=== PATIENT | male | born 1940 | race Caucasian/White ===

== ENCOUNTER 2017-11-03 20:54 | Emergency (ER) | payer OTHER, MEDICARE ==
[2017-11-03 21:06] VITALS: BP 120/76; PULSE 93; TEMP 99.4; BMI 26.9
[2017-11-03 21:16] LABS: PH,URINE 5.5 (4.5-8); URINE APPEARANCE Clear; URINE BILIRUBIN Negative (NEGATIVE); URINE COLOR YELLOW; URINE GLUCOSE (UA) Negative (NEGATIVE); URINE KETONE Negative (NEGATIVE); URINE LEUK ESTERASE 1+ (NEGATIVE); URINE NITRITE Positive (NEGATIVE); URINE PROTEIN 1+ (NEGATIVE); URINE UROBILINOGEN 0.2 (0.2-1.0)
--- NOTE | 2017-11-03 21:31 | PDOC ---
History of Present Illness - General Chief Complaint: Urinary Problem Stated Complaint: UTI Time Seen by Provider: 11/03/17 21:15 - History of Present Illness Initial Comments: This 77-year-old man with history of HTN, HLD, GERD, BPH referred to ER by PMD because of elevated white blood cell count. Patient was seen by his doctor ( Angel) earlier today with symptoms of urinary tract infection. Patient describes increasing dysuria/urinary frequency/fever over the last few days. UTI was diagnosed by his doctor and ciprofloxacin 500 mg twice a day was prescribed. Laboratory evaluation was performed at doctor's office but results were not received until this evening. White blood cell count was noted to be 26 ,200; patient and his were contacted and referred to ER for evaluation. During the day , after patient was evaluated by his PMD, he returned home without filling prescription for ciprofloxacin. Subsequently, he was nauseated and lethargic. When his returned home from work, she filled prescription and first dose of Cipro was given in the early evening. Within an hour, patient reports that he felt significantly better with resolution of the dysuria and lethargy/nausea. He states that he feels better now than he has felt for several days. Past History - Past Medical History Allergies/Adverse Reactions: Allergies Allergy/AdvReac Type Severity Reaction Status Date / Time No Known Allergies Allergy Verified 03/29/12 02:36 Home Medications: Ambulatory Orders Amlodipine Besylate 5 mg PO DAILY 11/03/17 Atorvastatin Ca [Lipitor] 20 mg PO HS 11/03/17 Cholecalciferol (Vitamin D3) [Vitamin D3] 1,000 unit PO DAILY 11/03/17 Omeprazole Magnesium [Prilosec Otc] 20 mg PO DAILY 11/03/17 Cardiac Disorders: Yes (VENTRICULAR HYPERTROPHY) COPD: No GI Disorders: Yes (GERD, IBS DIVERTICULOSIS) Disorders: Yes (BPH, RETENTION, ED) HTN: Yes Hypercholesterolemia: Yes Other medical history: UMBILICAL HERNIA - Suicide/Smoking/Psychosocial Hx Smoking Status: No Smoking History: Never smoked Have you smoked in the past 12 months: No Number of Cigarettes Smoked Daily: 0 Cigars Per Day: 0 Hx Alcohol Use: No Drug/Substance Use Hx: No Substance Use Type: None Hx Substance Use Treatment: No Review of Systems - Review of Systems Able to Perform ROS?: Yes Comments:: 12 point review of systems is negative except for what is noted in the history of present illness *Physical Exam - Vital Signs Last Vital Signs Temp Pulse Resp BP Pulse Ox 99.4 F 93 H 18 120/76 98 11/03/17 21:00 11/03/17 21:00 11/03/17 21:00 11/03/17 21:00 11/03/17 21:00 - Physical Exam Comments: GENERAL: Adult male, alert and oriented 3, in no acute distress HEAD: Normal with no signs of trauma. EYES: PERRLA, EOMI, sclera anicteric, conjunctiva clear. ENT: Ears normal, nares patent, oropharynx clear without exudates. Dry mucous membranes. NECK: Normal range of motion, supple without lymphadenopathy, JVD, or masses. LUNGS: Breath sounds equal, clear to auscultation bilaterally. No wheezes, and no crackles. HEART:Regular rate and rhythm, normal S1 and S2 without murmur, rub or gallop. ABDOMEN:.normal bowel sounds No guarding,tenderness or rebound.No masses No distention. EXTREMITIES: Normal range of motion, no edema. No clubbing or cyanosis. No erythema, or tenderness. NEUROLOGICAL: Cranial nerves II through XII grossly intact. Normal speech. No focal neurological deficits. MUSCULOSKELETAL: Back non-tender to palpation, no CVA tenderness SKIN: Warm, Dry, normal turgor, no rashes or lesions noted. ED Treatment Course - LABORATORY CBC & Chemistry Diagram: 11/03/17 21:45 11/03/17 21:46 - ADDITIONAL ORDERS Additional order review: Laboratory Results 11/03/17 21:07 Urine Color Yellow Urine Appearance Clear Urine pH 5.5 Ur Specific [place] 1.015 Urine Protein 1+ H Urine Glucose (UA) Negative Urine Ketones Negative Urine Blood Trace-intact H Urine Nitrite Positive Urine Bilirubin Negative Urine Urobilinogen 0.2 Ur Leukocyte Esterase 1+ H Progress Note - Progress Note Progress Note: This 77-year-old man with a history of BPH and symptoms of UTI for a few days, with diagnosis of UTI established by his PMD earlier today presents with history of markedly elevated white blood cell count measured in PMD office earlier in the day. Since then, he has had one dose of ciprofloxacin 500 mg and feels remarkably better. Exam reveals low-grade fever of 99.4 degrees Fahrenheit and mild tachycardia but normal blood pressure and pulse ox 98% on RA. On exam, his mucous membranes are dry but the remainder of his exam is essentially normal. Laboratory evaluation will be repleted including CBC/chemistry profile/ urinalysis/blood cultures as well as lactic acid level to evaluate for signs of sepsis (although clinically patient does not appear to be systemically ill). Meanwhile, patient will receive a liter of normal saline. Urinalysis is consistent with UTI with positive nitrite/positive LE/WBCs/RBCs and bacteria. Urine culture and sensitivity sent. Levaquin 500 mg IV administered. Remainder of laboratory evaluation shows persistent high WBC count (25,000) with neutrophil predominance. There is mild hypokalemia on chemistry profile ( likely secondary to diuretic); mild prerenal azotemia present with BUN is 17 and creatinine 1.1. Although patient and do not recall if he has been diagnosis prediabetic, random glucose is 205. Lactic acid is slightly elevated at 2.6. Patient received a liter of normal saline and continues to feel comfortable without recurrence of lethargy/nausea. He states that he is now hungry and feeling alert. Patient will be discharged with instructions to follow-up with his doctor within the next 1-2 days. He should continue ciprofloxacin as prescribed with next dose being tomorrow morning. His other medications should be also taken as prescribed. He should return to the emergency room if he has recurrence of high fever/dysuria/nausea or lethargy. Meanwhile, he should drink plenty of water *DC/Admit/Observation/Transfer Diagnosis at time of Disposition: UTI (urinary tract infection) Qualifiers: Urinary tract infection type: site unspecified Hematuria presence: without hematuria Qualified Code(s): N39.0 - Urinary tract infection, site not specified - Discharge Dispostion Disposition: HOME Condition at time of disposition: Stable - Referrals Referrals: Ramon Hammond [Primary Care Provider] - - Patient Instructions Printed Discharge Instructions: Urinary Tract Infection Additional Instructions: Drink plenty of fluids Continue ciprofloxacin as prescribed by your doctor (next dose in the morning) Continue all of your other medications as prescribed Follow-up with your doctor as previously scheduled Return to ER if you have vomiting/fever/worsening pain - Post Discharge Activity
[2017-11-03 21:42] LABS: URINE BACTERIA FEW /hpf (NEGATIVE); URINE WBC 30-40 (0-2)
[2017-11-03] MEDS ORDERED: SODIUM CHLORIDE 1,000 ML IV STA (21:48)
[2017-11-03 21:54] LABS: HEMOGLOBIN 14.7 GM/dl (11.7-16.9); MCH 30.7 pg (25.7-33.7); MCHC 34.9 g/dl (32.0-35.9); MEAN PLT VOLUME 8.6 fl (7.5-11.1); PLATELET COUNT 186 K/MM3 (134-434); RBC 4.78 M/mm3 (4.00-5.60); RDW 13.1 % (11.9-15.9)
[2017-11-03 22:12] LABS: ALBUMIN 3.5 g/dl (3.5-5.0); ALK PHOS 46 U/L (32-92); ANION GAP 7 (8-16); BILIRUBIN,TOTAL 1.4 mg/dl (0.2-1.0); BLOOD UREA NITROGEN 19 mg/dl (7-18); CALCIUM 8.5 mg/dl (8.4-10.2); CHLORIDE 101 mmol/L (98-107); CO2 23 mmol/L (22-28); CREATININE 1.1 mg/dl (0.6-1.3); GLUCOSE,RANDOM 205 mg/dl (74-106); POTASSIUM 3.3 mmol/L (3.5-5.1); SGOT/AST 20 U/L (10-42); SGPT/ALT 18 U/L (10-40); SODIUM 131 mmol/L (136-145); TOT PROT 6.1 g/dl (6.4-8.3)
[2017-11-03 22:28] LABS: PLATELET ESTIMATE ADEQUATE
--- NOTE | 2017-11-08 20:22 | PDOC ---
Patient Follow-up (Call Back) - Post ED Follow - Up Condition at time of discharge: Stable Disposition at time of original discharge: HOME Reason for Call Back: Abnwl. Microbiology Signs/Symptoms Improved: Yes (patient states that he is markedly improved) - Disposition Additional Instructions/Notes: Patient was contacted because urine culture resulted in Escherichia coli ESBL resistant to fluoroquinolones. Patient had been started on ciprofloxacin by his doctors prior to presentation here and continued on discharge. Patient states that he is feeling much better; his antibiotic has been changed to nitrofurantoin (one of the few antibiotics that organism is sensitive to). He states that he is scheduled to be followed up by infectious disease at [facility] tomorrow
== END 2017-11-03 23:49 | disposition home or self-care (01) ==
LOC: FER 20:54
PROC: 3E03329 Introduction of Other Anti-infective into Peripheral Vein, Percutaneous Approach (ICD-10-PCS; principal; 2017-11-03)
PROC: 3E0337Z Introduction of Electrolytic and Water Balance Substance into Peripheral Vein, Percutaneous Approach (ICD-10-PCS; 2017-11-03)
DX: N39.0 Urinary tract infection, site not specified (principal); I10 Essential (primary) hypertension; E78.5 Hyperlipidemia, unspecified; K21.9 Gastro-esophageal reflux disease without esophagitis; N40.0 Benign prostatic hyperplasia without lower urinary tract symptoms; R50.9 Fever, unspecified; R00.0 Tachycardia, unspecified
CPT/HCPCS: 36415; 80053; 81003; 81015; 83605; 85025; 87040; 87086; 87186; 99282-25; J7030

== ENCOUNTER 2018-12-06 17:14 | Emergency (ER) | payer OTHER, MEDICARE ==
--- NOTE | 2018-12-06 17:19 | PDOC ---
History of Present Illness - General Chief Complaint: Foreign Body (FB) Stated Complaint: FISHING HOOK IN FINGER Time Seen by Provider: 12/06/18 17:19 - History of Present Illness Initial Comments: 78 year old male with PMH of HTN, GERD, and hypercholesterolemia presenting with right middle digit pain after being impaled by a fish hook. Patient states this happened earlier this morning while fly fishing and a friend casted while he was close at which point the fly hook caught his finger. The hook is small and has a small melita at the end according to the patient. He denies any bleeding , drainage, fevers, nausea, vomiting, parethesias, or grater than mild pain. His last TDAP was >10 years prior. 12/06/18 17:56 Past History - Past Medical History Allergies/Adverse Reactions: Allergies Allergy/AdvReac Type Severity Reaction Status Date / Time No Known Allergies Allergy Verified 12/06/18 17:16 Home Medications: Ambulatory Orders Amlodipine Besylate 5 mg PO DAILY 11/03/17 Atorvastatin Ca [Lipitor] 20 mg PO HS 11/03/17 Cholecalciferol (Vitamin D3) [Vitamin D3] 1,000 unit PO DAILY 11/03/17 Omeprazole Magnesium [Prilosec Otc] 20 mg PO DAILY 11/03/17 Hydrochlorothiazide [Hctz -] 12.5 mg PO DAILY 12/06/18 Losartan Potassium 25 mg PO DAILY 12/06/18 Cardiac Disorders: Yes (VENTRICULAR HYPERTROPHY) COPD: No GI Disorders: Yes (GERD, IBS DIVERTICULOSIS) Disorders: Yes (BPH, RETENTION, ED) HTN: Yes Hypercholesterolemia: Yes - Suicide/Smoking/Psychosocial Hx Smoking Status: No Smoking History: Never smoked Have you smoked in the past 12 months: No Number of Cigarettes Smoked Daily: 0 Cigars Per Day: 0 Hx Alcohol Use: No Drug/Substance Use Hx: No Substance Use Type: None Hx Substance Use Treatment: No Review of Systems - Review of Systems Constitutional: No: Chills, Diaphoresis, Fever HEENTM: No: Blurred Vision, Tearing Respiratory: No: Cough, Orthopnea, Shortness of Breath Cardiac (ROS): No: Chest Pain, Edema ABD/GI: No: Diarrhea, Nausea, Vomiting : No: Dysuria, Discharge Integumentary: No: Erythema, Flushing Neurological: No: Numbness, Paresthesia, Tingling, Tremors Psychiatric: No: Anxiety, Depression Hematologic/Lymphatic: No: Anemia, Blood Clots *Physical Exam - Physical Exam General Appearance: Yes: Nourished, Appropriately Dressed. No: Apparent Distress HEENT: positive: EOMI, MARIZOL, Normal ENT Inspection, Normal Voice Neck: positive: Trachea midline, Normal Thyroid, Supple. negative: Tender, Rigid Respiratory/Chest: positive: Lungs Clear, Normal Breath Sounds. negative: Chest Tender, Respiratory Distress Cardiovascular: negative: Regular Rhythm, Regular Rate Gastrointestinal/Abdominal: positive: Normal Bowel Sounds, Flat, Soft. negative : Tender Lymphatic: negative: Adenopathy, Tenderness Musculoskeletal: positive: Normal Inspection. negative: Decreased Range of Motion Extremity: positive: Normal Capillary Refill, Tender (Mildly tender near the tsite of the injury.). negative: Normal Inspection (Right third digit with fish hook burried in distal, lateral, javier surface. No bleeding, erythema, drainage, or swelling.), Normal Range of Motion Integumentary: positive: Normal Color, Dry, Warm Neurologic: positive: Fully Oriented, Alert, Normal Mood/Affect, Normal Response , Motor Strength 5/5 Procedures - Laceration/Wound Repair Right Anterior Volar Hand 3rd digit Wound Length: to 2.5 cm Wound Explored: foreign body removed Wound's Depth, Shape: superficial Irrigated w/ Saline: Yes Betadine Prep: No Anesthesia: 1% Lidocaine Amount of Anesthetic (ccs): 4 (FInger block) Layer Closure: No Sterile Dressing Applied: Yes Progress: Fish hook removed from lateral, distal, javier surface of the third right digit. Anesthesia achieved with 4 ccs lidocaine in the javier flexor sheath achieving full finger anesthesia. Fish hook driven through the skin and the tip was cut off and removed. The fish hook was then backed out of the entry wound. Patient tolerated the procedure well. Minimal blood loss. Finger irrigated thoroughly afterwards. 12/06/18 18:13 Medical Decision Making - Medical Decision Making 78 year old male with PMH of HTN, HLD, and GERD presenting with fish hook in right third digit. Anesthetized and removed per procedure section. VSS and patient discharged after TDAP booster. Given discharge instructions and follow up precautions. 12/06/18 18:04 *DC/Admit/Observation/Transfer Diagnosis at time of Disposition: Foreign body of right hand Qualifiers: Encounter type: initial encounter Qualified Code(s): S60.551A - Superficial foreign body of right hand, initial encounter - Discharge Dispostion Disposition: HOME Condition at time of disposition: Improved Decision to Admit order: No - Referrals Referrals: Ramon Hammond [Non Staff, Medical] - - Patient Instructions Printed Discharge Instructions: DI for Removal of Foreign Body From Skin Additional Instructions: Keep the area where you had the hook clean and dry, don't soak the area, don't get it dirty. It should be completely healed in one week. Please return to the ED if you have swelling, worsening pain, uncontrollable bleeding, fevers, chills or other concerning symptoms. Please follow up with your PCP if you have any other questions or issues. - Post Discharge Activity
[2018-12-06] MEDS ORDERED: DIPHTH,PERTUSS(ACELL),TET 0.5 ML DISP.SYRIN IM ONE ×2 (17:20→18:06)
[2018-12-06 17:34] VITALS: TEMP 98.1; BMI 27.1
--- NOTE | 2018-12-06 17:55 | PDOC ---
Attending Attestation - Resident Resident Name: Levi Marina - ED Attending Attestation I have performed the following: I have examined & evaluated the patient, The case was reviewed & discussed with the resident, I agree w/resident's findings & plan, Exceptions are as noted - HPI HPI: 12/06/18 17:53 [place] distal pulp right index finger today while fishing. No pain or bleeding. - Physicial Exam PE: 12/06/18 17:53 Small fishhook superficially embedded in the distal pulp beside the nail. No nail involvement. No distal numbness or tingling. Capillary refill intact - Medical Decision Making 12/06/18 17:54 Assessment: Retained fishhook fingertip Plan: The digital block was performed by Dr. Marina, resident on duty. Good anesthesia was obtained. The fishhook was advanced through the skin, the melita was cut, and then the back or low the hook was withdrawn atraumatically. There was no pain or bleeding. The patient was intact and there is little likelihood of a foreign body. Wound care and follow-up if sign of infection. Patient tolerated the procedure well and discharged in no pain or other distress
[2018-12-06 18:08] VITALS: BP 126/83; PULSE 77
== END 2018-12-06 18:11 | disposition home or self-care (01) ==
LOC: FER 17:14
PROC: 0JCJ0ZZ Extirpation of Matter from Right Hand Subcutaneous Tissue and Fascia, Open Approach (ICD-10-PCS; principal; 2018-12-06)
DX: S61.242A Puncture wound with foreign body of right middle finger without damage to nail, initial encounter (principal); W22.8XXA Striking against or struck by other objects, initial encounter; Y93.89 Activity, other specified; Y92.89 Other specified places as the place of occurrence of the external cause; I10 Essential (primary) hypertension; E78.5 Hyperlipidemia, unspecified; K21.9 Gastro-esophageal reflux disease without esophagitis
CPT/HCPCS: 10120-25; 90715; 99281-25

== ENCOUNTER 2021-08-15 22:32 | Emergency (ER) | payer OTHER, MEDICARE ==
[2021-08-15 22:41] VITALS: BP 175/80; PULSE 77; TEMP 97.6; BMI 27.3
== END 2021-08-15 23:40 | disposition home or self-care (01) ==
LOC: FER 22:32
DX: I10 Essential (primary) hypertension (principal)
CPT/HCPCS: 99283-25

== ENCOUNTER 2024-03-27 17:21 | Emergency (ER) | payer OTHER, MEDICARE ==
[2024-03-27 17:42] VITALS: BP 133/87; PULSE 80; RESP 16; TEMP 97.7; BMI 27.3
[2024-03-27] MEDS ORDERED: LIDOCAINE 1%/EPI 1:100000 (20 ML MULTI DOSE VIAL) PNB ONE (17:52)
== END 2024-03-27 18:30 | disposition home or self-care (01) ==
LOC: FER 17:21
PROC: 0HCFXZZ Extirpation of Matter from Right Hand Skin, External Approach (ICD-10-PCS; principal; 2024-03-27)
DX: S60.450A Superficial foreign body of right index finger, initial encounter (principal); W45.8XXA Other foreign body or object entering through skin, initial encounter
CPT/HCPCS: 99283-25